=== PATIENT | male | born 1950 | race Caucasian/White ===

== ENCOUNTER → 2020-07-10 | Outpatient (CLI) | payer MEDICARE, OTHER ==
[~2020-07-10] MED LIST: ASA81BEC PO; LISINOPRIL5 MG PO; OCUVITE EYE +1 EACH PO
[2020-07-10 10:26] LABS: PROTIME 10.9 Seconds (9.20-11.50)
[2020-07-10 10:41] LABS: URINE BILIRUBIN NEGATIVE (Negative); URINE BLOOD NEGATIVE (Negative); URINE CLARITY CLEAR; URINE COLOR YELLOW; URINE GLUCOSE-RANDOM NEGATIVE (Negative); URINE KETONES NEGATIVE (Negative); URINE LEUKOCYTES-REFLEX NEGATIVE (Negative); URINE NITRITE-REFLEX NEGATIVE (Negative); URINE PROTEIN NEGATIVE (Negative); URINE SPECIFIC GRAVITY >= 1.030 (1.005-1.030); URINE UROBILINOGEN 0.2 E.U./dl (0.2-1.0)
== END ==
LOC: M.LAB 05:49
PROVIDERS: ATTEND Orthopaedic Surgery
DX: Z01.818 Encounter for other preprocedural examination (principal); M16.12 Unilateral primary osteoarthritis, left hip

== ENCOUNTER 2020-07-17 06:09 | Inpatient (IN) | payer MEDICARE, OTHER ==
[~2020-07-17] VITALS: Ht 175.3 cm; Wt 123.4 kg
[2020-07-17 10:31] VITALS: BP 132/61
[2020-07-17 16:00] VITALS: BP 97/57
--- NOTE | 2020-07-17 18:25 | NUR ---
PT A&OX4 VSS. ICE TO L HIP FOR PAIN RELIEF. HEMOVAC AND ANNABELLA DRAIN IN PLACE. SINUS CHRISTINE ON MONITOR, STRIP PRINTED AND PLACED TO CHART. IV TO L HAND PATENT, DRESSING C/D/I. PT RESTS IN ROOM WITH CALL LIGHT IN REACH, WILL CONTINUE TO MONITOR
--- NOTE | 2020-07-17 18:57 | EKG ---
[place] [address] ELECTROCARDIOGRAM REPORT Name: JORDON MOSES Room: [address] ADM IN .R.#: [id number] Admission: 07/17/20 Attend Phys: Trent Fleming Discharge: Date of : 50 Date of Service: 07/17/20 1416 Report #: [id number] THIS REPORT FOR: //name// [facility] Test Date: 2020-07-17 Test Time: 14:16:11 Pat Name: JORDON MOSES Department: Room: [facility] Gender: M Spa Supervisor: RAUDEL : 1950 Requested By: Nubia Meza Order Number: [id number] [place] MD: Baljit Bustillo Measurements Intervals [place] Rate: 43 P: 28 AK: 166 QRS: -9 QRSD: 114 T: -3 QT: 515 QTc: 436 Interpretive Statements Sinus bradycardia Borderline intraventricular conduction delay Borderline T wave abnormalities Baseline wander in lead(s) V5,V6 Compared to ECG 12/11/2011 08:56:45 T-wave abnormality now present Sinus rhythm no longer present Electronically Signed On 07-17-2020 18:57:53 CDT by Baljit Bustillo [email or web address] <ELECTRONICALLY SIGNED> By: Baljit Bustillo MD, FACC 07/17/20 1857 1416 1416 Baljit Bustillo MD, FAC /EPI
[2020-07-17 20:00] VITALS: BP 108/60
[2020-07-18] VITALS (10 sets, daily range): BP systolic 82–123; BP diastolic 40–74
[2020-07-18 06:36] LABS: HEMATOCRIT 40.2 % (42.0-52.0); HEMOGLOBIN 13.4 gm/dL (14.0-18.0); MCH 31.9 pg (26.0-34.0); MCHC 33.3 g/dL (28.0-37.0); MCV 95.7 fL (80.0-100.0); MPV 8.4 fl. (7.2-11.1); RBC 4.2 mil/uL (4.50-6.00); RDW-CV 13.8 % (10.5-14.5); WBC 9.7 thou/uL (4.0-11.0)
[2020-07-18 07:16] LABS: ALBUMIN 3.1 g/dL (3.4-5.0); CALCIUM 8.7 mg/dL (8.5-10.1); CREATININE 1.3 mg/dL (0.6-1.3); POTASSIUM 3.9 mmol/L (3.5-5.1); TOTAL BILIRUBIN 1.5 mg/dL (<0.1-1.0); TOTAL PROTEIN 6.5 g/dL (6.4-8.2)
--- NOTE | 2020-07-18 07:43 | NUR ---
ASSUMED PT CARE AT APPROX 1930. PT IS AWAKE AND ORIENTED X4. PT IS TRACING SR ON THE CATEGORY CONSULTANT. PT IS NOT IN DISTRESS, NO DESATURATIONS NOTED ON 2L OF O2/NC. PT C/O PAIN ON LEFT HIP RELEIVED BY PAIN MEDS GIVEN PER MAY. DRESSING ON INCISION SITE ON LEFT HIP IS CLEAN, DRY AND INTACT, HEMOVAC IS INTACT, SANGUINOUS DRAINAGE NOTED. PT HAD SYNCOPAL EPISODE THIS AM AT APPROX 0615 LASTING FOR ABOUT 1 MIN, PT IS AWAKE AND IS ORIENTED RIGHT AFTER. VITALS CHARTED. DR HALL INFORMED, NS 500ML BOLUS INFUSED ORDERED. BP RECHECKED 116/51. PT IS ABLE TO VOID SMALL AMOUNT OF URINE, POST VOID RESIDUAL CHECKED= 314ml, PT IS ASKED IF HE WANTED TO HAVE BAILEY CATHETER INSERTED, PT REFUSED AND STATED HE WANTED TO WAIT TO SEE IF HE'LL BE ABLE TO VOID ONE MORE TIME. REPORT GIVEN TO CHUCKY WILEY.
--- NOTE | 2020-07-18 15:08 | NUR ---
Pt is A&O. Resides at home with . Normally independent. Pt uses a walker for mobility, also has a cane. Hx of HH. No hx of SNF. Orthostatic this morning, syncopal episode. Anticipate dc to home tomorrow, JON to clarify either HH vs outpt therapy. JON called [facility] to check the cost of his Xarelto script, it will be $12. Following.
--- NOTE | 2020-07-18 16:16 | OP ---
[facility] [address] [place] [address] OPERATIVE REPORT Name: JORDON MOSES Room: [address] IN M.R.#: [id number] Admission: 07/17/20 Attend Phys: Julio Rubio Discharge: Date of : 50 Report #: [id number] THIS REPORT FOR: cc: Tyson Candelario Vincent R. DO Greiner, Robert F. II DO ~ DATE OF SERVICE: 07/17/2020 PREOPERATIVE DIAGNOSIS: Left hip osteoarthritis. POSTOPERATIVE DIAGNOSIS: Left hip osteoarthritis. PROCEDURE: Left total hip arthroplasty. SURGEON: Gerson Perez II, DO. PROCESS CONSULTANT: None. ANESTHESIA: General endotracheal. ESTIMATED BLOOD LOSS: 500 mL. ANTIBIOTICS: Ancef preoperatively. DRAINS: Medium Hemovac. COMPLICATIONS: None. CONDITION OF THE PATIENT: Stable to recovery room. IMPLANTS: Listed in operative record and progress note. BRIEF HISTORY: The patient was seen in the preoperative area. Preoperative H and P was performed. The patient's site was marked, questions were answered. Risks and benefits were discussed. We discussed with the patient in detail about surgery. The patient wished to proceed, assuming all risks. DESCRIPTION OF PROCEDURE: The patient was taken to the operative suite and placed supine on the OR table, given appropriate anesthesia. The patient's operative hip was placed in the [place] table leg navas and sterilely prepped and draped in supine position. Surgery began on longitudinal incision over the anterior portion of the hip. This was carried down to the subcutaneous tissues. A small michael was made in the tensor fascia. It was then split along its fibers and retracted laterally. An H capsulotomy was then performed and careful hemostasis was maintained with electrocautery and Aquamantys. The head and neck [address] [address] OPERATIVE REPORT Name: JORDON MOSES Room: [address] IN [place].Cassie.#: [id number] Admission: 07/17/20 Attend Phys: Julio Rubio Discharge: Date of : 50 Report #: [id number] cutting alignment guide was under and fluoroscopic guidance. Appropriate cut was made to the head and neck with and this was removed. Attention was turned to the acetabulum. Excess labrum was removed. It was then reamed in sequential fashion up to appropriate size. This showed excellent bleeding bone in excellent position on fluoroscopic guidance. The acetabular cup was then malleted into position and secured with two cancellous screws. Metal liner was then applied. The patient's leg was then rotated and extended in the [place] table to expose the femur. It was then broached in sequential fashion up to appropriate size. The appropriate neck was trialed with appropriate head length and showed excellent fit and fill and excellent stability of the hip through all range of motion. These trials were then removed. The final stem was then malleted into position and the final head was then malleted in position. It was reduced in appropriate fashion, checked with C-arm for appropriate leg length and showed excellent leg length throughout the exam without evidence of dislocation upon range of motion and shuck testing. Wound was then copiously irrigated. Hemostasis was maintained with electrocautery and Aquamantys. Pain cocktail was injected. A drain was activated. The H capsulotomy was then closed with #1 Vicryl in [id number] fashion. Tensor fascia was closed with 1 Vicryl in running fashion. Skin was closed with 2-0 Vicryl and running 3-0 Monocryl with Dermabond and sterile dressing applied. The patient was transported to recovery room in stable condition. Counts were correct throughout the procedure. <ELECTRONICALLY SIGNED> By: Gerson Perez II, DO 07/18/20 1616 0102 [id number] Perez II, DO /nt
--- NOTE | 2020-07-18 18:04 | NUR ---
PT A&OX4 VSS. IN TO LFA PATENT, FLUIDS RUNNING. PT HYPOTENSIVE THIS SHIFT. SINUS ON MONITOR. DRESSING TO L HIP C/D/I. PT UP WITH THERAPY THIS SHIFT. PT REMAINS ON ROOM AIR. PRN PAIN MEDICATION ADMINISTERED REQUESTED. PT RESTING IN RECLINER WITH CALL LIGHT IN REACH, WILL CONTINUE TO MONITOR.
[2020-07-19] VITALS: BP 96/53
[2020-07-19 04:00] VITALS: BP 114/65
[2020-07-19 04:28] LABS: HEMATOCRIT 35.9 % (42.0-52.0); HEMOGLOBIN 12.2 gm/dL (14.0-18.0)
--- NOTE | 2020-07-19 06:15 | NUR ---
NO ACUTE CHANGES THROUGHOUT SHIFT. ALL ROUNDINGS COMPLETED, ALL NEEDS MET. BED LOCKED AND IN LOW POSITION, CALL LIGHT AND PERSONAL ITEMS IN REACH. PT CONTINUES TO C/O PAIN IN GROIN AND LEFT HIP.
[2020-07-19 08:00] VITALS: BP 117/60
[2020-07-19 12:00] VITALS: BP 102/56
--- NOTE | 2020-07-19 12:36 | NUR ---
Pt reporting pain. Per Pt, Dr Perez recommending ARU vs SNF. CM checked, Pt does not qualify for ARU. Plan to work with therapies today, if still weak and pain issues tomorrow, plan on SNF dc. CM following.
[2020-07-19 16:00] VITALS: BP 102/59
--- NOTE | 2020-07-19 16:03 | NUR ---
SATURATOR TENDER AND IV FLUIDS DC'D PER ORDERS. UP IN CHAIR MOST OF SHIFT. PARTICIPATED WITH THERAPY, GIVEN PO PAIN MEDS PRIOR TO THERAPY - TWICE DURING SHIFT - REPORTING PARTIAL RELIEF. TOLERATING DIET. AT BEDSIDE, CALL LIGHT WITHIN REACH. DRESSING CDI TO LEFT HIP. WILL CONTINUE WITH PLAN OF CARE.
[2020-07-19 23:29] VITALS: BP 109/61
--- NOTE | 2020-07-20 02:01 | NUR ---
ASSUMED CARE OF PT AT 1900. PT IS ALERT AND ORIENTED. VSS. PERRLA. NO COMPLAINTS OF PAIN. UP WITH 1 ASSIST. PT IS MED SURG. PT IS IN SINUS RYTHM ON THE TELEMETRY. PT IS RESTING COMFORTABLY IN BED. RESPIRATIONS ARE EVEN AND NONLABORED. WILL CONTINUE TO MONITOR PT.
[2020-07-20 03:51] VITALS: BP 127/64
[2020-07-20] MEDS ORDERED: XARELTO10 MG PO (09:25)
[2020-07-20] MEDS ORDERED: COLACE 100 MG100 MG PO (09:25)
[2020-07-20] MEDS ORDERED: CELEBREX 200 M200 M1 PO (09:25)
[2020-07-20] MEDS ORDERED: PERCOCET PO (09:25)
[2020-07-20 09:31] VITALS: BP 127/64
--- NOTE | 2020-07-20 10:23 | NUR ---
Pt discharging to home today with [facility], CM faxed orders. in room and will transport.
[2020-07-20 13:24] VITALS: BP 127/64
[2020-07-20 13:59] VITALS: BP 127/64
== END 2020-07-20 16:30 | disposition home health service (06) | DRG 470 ==
LOC: M.PRE 06:09 → M.2W 09:48 → M.TBA 09:48 → M.PRE 10:00 → M.2W 16:21
PROVIDERS: Orthopaedic Surgery; ADMIT Internal Medicine; ATTEND Internal Medicine
PROC: 0SRB0JZ Replacement of Left Hip Joint with Synthetic Substitute, Open Approach (ICD-10-PCS; principal; 2020-07-17)
DX: M16.12 Unilateral primary osteoarthritis, left hip (principal); Z68.41 Body mass index [BMI] 40.0-44.9, adult; I95.9 Hypotension, unspecified; I10 Essential (primary) hypertension; E66.01 Morbid (severe) obesity due to excess calories; Z79.82 Long term (current) use of aspirin; Z79.899 Other long term (current) drug therapy